=== PATIENT | male | born 1995 | race Hispanic/Latino ===

== ENCOUNTER → 2019-12-04 | Outpatient (CLI) | payer OTHER | END | disposition home or self-care (01) | LOC: LAB 14:15 | PROVIDERS: ATTEND Internal Medicine Cardiovascular Disease | DX: Z11.59 Encounter for screening for other viral diseases (principal) | CPT/HCPCS: C9803; U0003 ==

== ENCOUNTER 2020-10-05 17:38 | Emergency (ER) | payer OTHER ==
[~2020-10-05] VITALS: Ht 167.6 cm; Wt 61.2 kg
[2020-10-05 17:44] VITALS: BP 154/87
[2020-10-05] MEDS ORDERED: HYDR25SU38 RC (18:08)
== END 2020-10-05 18:28 | disposition home or self-care (01) ==
LOC: EDH 17:38
DX: K59.00 Constipation, unspecified (principal); K62.89 Other specified diseases of anus and rectum; R73.09 Other abnormal glucose
CPT/HCPCS: 82948

== ENCOUNTER → 2021-11-17 | Outpatient (CLI) | payer OTHER ==
[~2021-11-17] MED LIST: HYDR25SU38 RC
== END | disposition home or self-care (01) ==
LOC: ICE 08:16
PROVIDERS: ATTEND Hospitalist
DX: U07.1 COVID-19 (principal)
CPT/HCPCS: 87426